=== PATIENT | male | born 1990 ===

== ENCOUNTER → 2018-06-15 14:29 | Outpatient (REF) | payer BC, SELFPAY ==
[2018-06-15 17:24] LABS: Free T4, Direct Thyroxine 0.63 ng/dL (0.78-2.19); T4 Total Thyroxine 4.82 ug/dL (5.5-11.0)
[2018-06-15 17:37] LABS: Thyroid Stimulating Hormone 3.78 uIU/mL (0.47-4.68)
[2018-06-15 19:28] LABS: T7 (Free Thyroxine Index) 1.56 (1.65-3.89); Triiodothryronine T3 Uptake 32.3 % (23.5-40.5)
[2018-06-17 15:26] LABS: Triiodothyronine T3 Total 81 ng/dL (76-181)
[2018-06-17 16:15] LABS: Anti Thyroglobulin Antibody 1 IU/mL (< 2); Thyroid Peroxidase Antibodies 1 IU/mL (< 9)
[2018-06-18 17:11] LABS: Triiodothyronine T3 Reverse 14 ng/dL (8-25)
== END ==
LOC: LAB 14:29
PROVIDERS: Visit Provider Naturopath
DX: E03.9 Hypothyroidism, unspecified (principal); E27.9 Disorder of adrenal gland, unspecified
CPT/HCPCS: 84436; 84439; 84443; 84479; 84480; 84481; 84482; 86376; 86800